=== PATIENT | female | born 2005 | race African-American/Black ===

== ENCOUNTER 2025-04-11 05:13 | Emergency (ER) | payer OTHER ==
[~2025-04-11] VITALS: Ht 170.2 cm; Wt 92.0 kg
[2025-04-11 05:15] VITALS: O2SAT 99
[2025-04-11 06:15] LABS: BASOPHILS % 0.8 % (0.0-2.0); EOSINOPHILS % 3.3 % (0.0-5.0); HEMATOCRIT. 35.6 % (36.0-48.0); HEMOGLOBIN. 11.9 g/dL (12.0-16.0); LYMPHOCYTES % 31.7 % (20.0-50.0); MEAN CORPUSCULAR HEMOGLOBIN 28.1 pg (28.0-32.0); MEAN CORPUSCULAR HGB CONC 33.5 g/dL (31.0-37.0); MEAN CORPUSCULAR VOLUME 83.8 fL (81.0-99.0); MEAN PLATELET VOLUME 7.8 fl (7.4-10.4); MONOCYTES % 11.2 % (2.0-8.0); PLATELET 207 x1000/uL (130-400); RED BLOOD CELL COUNT 4.24 mill/uL (4.2-5.4); RED CELL DISTRIBUTION WIDTH 16.3 % (11.6-14.6); WHITE BLOOD COUNT 4.3 x1000/uL (4.5-11.0)
[2025-04-11] MEDS: SODIUM CHLORIDE 0.9% 1,000 ML IV ONE (06:19)
[2025-04-11] MEDS: ACETAMINOPHEN 325MG TABLET PO STA (06:20)
[2025-04-11] MEDS: DIPHENHYDRAMINE 50MG/ML VIAL IV ONE (06:20)
[2025-04-11] MEDS: ONDANSETRON HCL 4MG/2ML INJ IV STA (06:20)
[2025-04-11] MEDS: KETOROLAC 30MG/ML VIAL IV STA (06:20)
[2025-04-11 06:41] LABS: CHLORIDE 108 mEq/L (98-107); POTASSIUM 3.9 mEq/L (3.5-5.1); SODIUM 141 mEq/L (136-145)
[2025-04-11 06:42] LABS: CARBON DIOXIDE 26 mEq/L (21-32)
[2025-04-11 06:43] LABS: CALCIUM 9.2 mg/dL (8.7-10.4)
[2025-04-11 06:47] LABS: CREATININE 1.1 mg/dL (0.6-1.0); GLUCOSE 101 mg/dL (70-105)
[2025-04-11 06:48] LABS: UREA NITROGEN BLOOD 7 mg/dL (9-23)
[2025-04-11 07:19] LABS: HCG SCREEN NEGATIVE
[2025-04-11 08:37] VITALS: BP 120/79; PULSE 77; RESP 16; TEMP 37.8; O2SAT 99
== END 2025-04-11 08:38 | disposition home or self-care (01) ==
LOC: ER 05:13
DX: G43.909 Migraine, unspecified, not intractable, without status migrainosus (principal)
CPT/HCPCS: 80048; 84703; 85025; 36415; 96361; 96374; 96375; 99284; J1200; J1885; J2405; J7030; Z7610